=== PATIENT | female | born 1960 | race Asian ===

== ENCOUNTER 2019-06-15 15:46 | Emergency (ER) | payer OTHER ==
--- NOTE | 2019-06-15 15:51 | PDOC ---
Documentation entered by Angela Yoon SCRIBE, acting as scribe for Edith Orozco MD. Edith Orozco MD: This documentation has been prepared by the scaribe, Angela Yoon SCRIBE, under my direction and personally reviewed by me in its entirety. I confirm that the documentation accurately reflects all work, treatment, procedures, and medical decision making performed by me. History of Present Illness - General Chief Complaint: Back Pain Stated Complaint: BACK PAIN Time Seen by Provider: 06/15/19 15:48 History Source: Patient Exam Limitations: No Limitations - History of Present Illness Initial Comments: 06/15/19 16:30 The patient is a 58 year old female with a significant PMHx of hypertension, hypothyroidism, and GERD who presents to the emergency department with intermittent lower lumbar back pain spasms that radiate to her groin and right buttock/upper thigh with a severity of 10/10. Patient states she has always had back pain but it has progressively gotten worse within the past week. Patient states when the spasms start she feels the need to use the bathroom and feels nauseous. 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 No direct trauma or falls. Patient states she visited [facility] on ~2 days ago with similar symptoms and was prescribed celebrex and robaxin. As per patient she took celebrex and robaxin at 11am. She also tried stretching and placing heat packs on her back with some relief of pain. she last saw Dr Youssef about 2 weeks ago for her lower back pain; previously has done epidural injections, none recently. she finished course of medrol dosepak with improvement of sx she has also had chiropractor sessions previously for her back pain management. She denies any trauma or falls. She denies any abdominal pain. She denies any numbness or tingling. She denies recent fevers, chills, headache or dizziness. She denies recent, vomiting, diarrhea or constipation. She denies recent dysuria, frequency, urgency or hematuria. denies pelvic pain Allergies: Shellfish Past surgical history: Appendectomy Social history: Nonsmoker. Denies EtOH use and recreational drug use. Primary Care Physician: Dr. Rodgers Orthopedic Physician : Dr. Youssef 06/15/19 16:37 Past History - Past Medical History Allergies/Adverse Reactions: Allergies Allergy/AdvReac Type Severity Reaction Status Date / Time Shellfish Allergy Severe Hives Verified 10/20/15 16:19 Home Medications: Ambulatory Orders Levothyroxine [Synthroid] 25 mcg PO DAILY 09/27/12 Amlodipine Besylate [Norvasc -] 5 mg PO DAILY 06/16/15 Celecoxib [Celebrex] 200 mg PO BID PRN 06/15/19 Diazepam [Valium] 5 mg PO Q8H #9 tablet MDD 3 06/15/19 Lidocaine 5% Patch [Lidoderm Patch -] 1 patch TP DAILY PRN #7 patch 06/15/19 Methocarbamol [Robaxin-750] 750 mg PO TID PRN 06/15/19 Pantoprazole Sodium [Protonix -] 40 mg PO DAILY 06/15/19 Anemia: No Asthma: No Cancer: No Cardiac Disorders: No CVA: No COPD: No CHF: No Dementia: No Diabetes: No GI Disorders: Yes (GASTRIC REFLUX) Disorders: No HTN: Yes Hypercholesterolemia: No Liver Disease: No Seizures: No Thyroid Disease: Yes - Surgical History Abdominal Surgery: No Appendectomy: Yes Cardiac Surgery: No Cholecystectomy: No Lung Surgery: No Neurologic Surgery: No Orthopedic Surgery: No - Immunization History Immunization Up to Date: Yes - Psycho Social/Smoking Cessation Hx Smoking Status: No Smoking History: Never smoked Number of Cigarettes Smoked Daily: 0 Hx Alcohol Use: No Drug/Substance Use Hx: No Substance Use Type: None Hx Substance Use Treatment: No Review of Systems - Review of Systems Able to Perform ROS?: Yes Comments:: 06/15/19 15:51 Review of Systems Constitutional: no fevers or chills. Resp: no shortness of breath Chest: no chest pain. Abdomen: no abdominal pain Genitorurinary: no urinary retention or incontinence, no dysuria, urgency or frequency. no hematuria MUSCULOSKELETAL: No joint pain and swelling. No muscle pain/arthralgias. Back: + back pain SKIN: no redness or skin changes, no discharge, no rash. No wounds. Hematologic: no easy bruising/bleeding. NEUROLOGIC: No weakness, numbness or tingling. Allergic/Immunologic: no allergies All other systems reviewed and negative, or as documented in HPI. 06/15/19 16:14 *Physical Exam - Physical Exam 06/15/19 15:51 physical exam General: NAD, well appearing HEENT: NCAT, PERRL, EOMI Chest: RRR, no murmur Resp: CTAB, no respiratory distress Abdomen: soft, no tenderness, nondistended Vascular: 2+ DP pulses symmetric and equal. Back: no midline tenderness, no stepoffs, FROM; +right sided paralumbar TTP, with associated tenderness over coccyx, right buttock and lateral /proximal upper thigh. +spasms MSK: notable for soft compartments, Cap refill <2 sec. Proximal and distal strength 5/5, product design specialist strength 5/5 - equal and symmetric. Plantar flexion and dorsiflexion 5/5. FROM. Sensation grossly intact to light touch. No calf tenderness. Neg SLR b/l. 2+ patellar reflexes. Neuro: alert, no focal neurologic deficits Skin: color normal color, warm and well perfused. Cap refill <2 sec. 06/15/19 16:13 06/15/19 16:17 Medical Decision Making - Medical Decision Making 06/15/19 16:15 Vital Signs Temp Pulse Resp BP Pulse Ox 98.5 F 90 16 150/80 95 06/15/19 15:47 06/15/19 15:47 06/15/19 15:47 06/15/19 15:47 06/15/19 15:47 The patient presents with acute onset of back pain after 1 week. Clinically this patient can be ruled out for serious pathology given there is a completely normal neurological exam, no history of IV drug use, and no history of bowel or bladder incontinence, no perianal numbness/tingling, no constipation or urinary retention. DDx back pain: back strain, lumbago, sciatica, radiculopathy, spinal stenosis. Muscle spasm. Lumbar radiculopathy. Clinically doubt based on exam and clinical history: cord compression or cauda equina, with low suspicion and NO red flag sx such as malignancy, weight loss, trauma, fevers, IVDU, lumbar/spinal procedures, bowel and bladder incontinence/ retention, urinary sx, neurologic deficits or changes. No risk factors or findings concerning for epidural abscess, discitis, vertebral osteomyelitis, cord compression, cauda equina, vertebral fracture or bone malignancy, AAA, or pyelonephritis. no imaging indicated no fall/trauma, so doubt bony deformities or fracture. also no midline back tenderness. neuro intact no abdominal or pelvic sx to warrant further imaging. check UA, unremarkable;' no blood or infection 06/15/19 17:12 on reassessment, feels much improved, pain down to 2/10, improved ROM spasms improved., able to ambulate, neuro intact, no focal deficits. Once the patients pain was adequately controlled, the patient was able to ambulate and be discharged in stable condition with anticipatory guidance provided. Can ambulate as tolerated, no heavy lifting, range of motion exercises encouraged. Rx meds, side effects reviewed, prn for analgesia/spasms. Patient instructed to consider further imaging and workup through their primary care physician as an outpatient if symptoms persist. Pt to be discharged in stable condition. Patient and family made aware of clinical impression, treatment recommendations and disposition plan, return precautions discussed (including but not limited to new or persistent/worsening symptoms, pain, fevers, or signs of infection, chest pain, respiratory distress , inability to tolerate oral intake, dehydration, syncope, or neurologic changes ). Follow up with PMD Dr Rodgers and/or ortho specialist as recommended, follow up information provided, take medications as instructed for duration of time. continue with supportive care, ROM exercises/chiropractor, avoid triggers and precipitants. All questions answered to patient's satisfaction and expressed understanding and comfort with this. At the time of discharge, the patient is alert, clinically improved, tolerating po and verbalizes understanding of instructions, satisfied with the care received and felt comfortable with the plan. Patient does not suffer from an acute life-threatening medical condition at this time and is safe for outpatient follow-up. Discharge - Discharge Information Problems reviewed: Yes Clinical Impression/Diagnosis: Back pain Condition: Good Disposition: HOME - Admission No - Additional Discharge Information Prescriptions: Diazepam [Valium] 5 mg PO Q8H #9 tablet MDD 3 Lidocaine 5% Patch [Lidoderm Patch -] 1 patch TP DAILY PRN #7 patch PRN Reason: Pain - Follow up/Referral Referrals: Luis Enrique Rodgers MD [Primary Care Provider] - Sarath Youssef MD [Staff Physician] - - Patient Discharge Instructions Patient Printed Discharge Instructions: DI for Low Back Pain, Acupuncture for Low Back Pain, Exercise May Reduce Risk of Low Back Pain Additional Instructions: Please follow up with your Primary Care Doctor within 48-72 hours - call for an appointment. Ambulate as tolerated and no heavy lifting. take your medications as instructed, home celebrex and/or tylenol as needed for pain control, topical lidoderm patch 12 hours on/12 hours off for myofascial pain, Valium 5mg every 8 hours as needed for muscle spasm- do not drive or make any important decisions while on this medication for it can make you drowsy. If you experience any worsening pain, swelling, numbness, weakness please return to ER you should also follow up with your orthopedist Dr Youssef. HOME CARE INSTRUCTIONS: For many people, back pain returns. Since low back pain is rarely dangerous, it is often a condition that people can learn to manage on their own. Please remain active. It is stressful on the back to sit or brine purifier one place. Do not sit, drive, or brine purifier one place for more than 30 minutes at a time. Take short walks on level surfaces as soon as pain allows. Try to increase the length of time you walk each day. Do not stay in bed. Resting more than 1 or 2 days can delay your recovery. Do not avoid exercise or work. Your body is made to move. It is not dangerous to be active, even though your back may hurt. Your back will likely heal faster if you return to being active before your pain is gone. Only take [id number] or prescription medicines as directed by your caregiver. [id number] medicines to reduce pain and inflammation are often the most helpful. Your caregiver may prescribe muscle relaxant drugs. These medicines help dull your pain so you can more quickly return to your normal activities and healthy exercise. Please avoid driving, operating heavy machinery or making important decisions while on this drug - it can cloud your judgment. Avoid feeling anxious or stressed. Stress increases muscle tension and can worsen back pain. It is important to recognize when you are anxious or stressed and learn ways to manage it. Exercise is a great option. SEEK MEDICAL CARE IF: You have pain that is not relieved with rest or medicine. You have pain that does not improve in 1 week. You have new symptoms. You are generally not feeling well. SEEK IMMEDIATE MEDICAL CARE IF: You have pain that radiates from your back into your legs. You develop new bowel or bladder control problems. You have unusual weakness or numbness in your arms or legs. You develop nausea or vomiting. You develop abdominal pain. You feel faint. - Post Discharge Activity Work/Back to School Note: Back to Work
[2019-06-15 16:13] VITALS: BP 150/80; PULSE 90; TEMP 98.5; BMI 22.8
[2019-06-15] MEDS ORDERED: diazePAM 5 MG TABLET PO ONE (16:16)
[2019-06-15] MEDS ORDERED: KETOROLAC TROMETHAMINE 30 MG/1 ML VIAL IM ONE (16:17)
[2019-06-15] MEDS ORDERED: ACETAMINOPHEN 325 MG TABLET (FP) PO ONE (16:17)
[2019-06-15] MEDS ORDERED: LIDOCAINE 5% TOPICAL PATCH TP ONE (16:17)
[2019-06-15] MEDS ORDERED: KETOROLAC TROMETHAMINE 30 MG/1 ML VIAL ONE (16:21)
[2019-06-15] MEDS ORDERED: ACETAMINOPHEN 325 MG TABLET (FP) ONE (16:21)
[2019-06-15] MEDS ORDERED: diazePAM 5 MG TABLET ONE (16:22)
[2019-06-15] MEDS ORDERED: LIDOCAINE 5% TOPICAL PATCH ONE (16:23)
== END 2019-06-15 17:19 | disposition home or self-care (01) ==
LOC: FER 15:46
PROC: 3E0233Z Introduction of Anti-inflammatory into Muscle, Percutaneous Approach (ICD-10-PCS; principal; 2019-06-15)
DX: M54.9 Dorsalgia, unspecified (principal); M54.5 Low back pain; I10 Essential (primary) hypertension; E03.9 Hypothyroidism, unspecified; K21.9 Gastro-esophageal reflux disease without esophagitis
CPT/HCPCS: 81003; 99282-25

== ENCOUNTER 2020-07-10 19:09 | Emergency (ER) | payer OTHER ==
[2020-07-10 19:18] VITALS: BP 164/94; PULSE 95; TEMP 99.1; BMI 23.8
[2020-07-10] MEDS ORDERED: predniSONE 20 MG TABLET (UD) PO ONE (19:36)
[2020-07-10] MEDS ORDERED: predniSONE 20 MG TABLET (UD) ONE (19:38)
[2020-07-10] MEDS ORDERED: LORATADINE 10 MG TABLET PO ONE (20:23)
[2020-07-10] MEDS ORDERED: LORATADINE 10 MG TABLET ONE (20:24)
== END 2020-07-10 21:15 | disposition home or self-care (01) ==
LOC: FER 19:09
PROC: 3E023GC Introduction of Other Therapeutic Substance into Muscle, Percutaneous Approach (ICD-10-PCS; principal; 2020-07-10)
DX: L50.9 Urticaria, unspecified (principal)
CPT/HCPCS: 99284-25

== ENCOUNTER 2020-07-12 12:28 | Emergency (ER) | payer OTHER ==
[2020-07-12 12:42] VITALS: BP 142/87; PULSE 98; TEMP 98.1; BMI 23.8
[2020-07-12] MEDS ORDERED: FAMOTIDINE 20 MG/50 ML IVPB 20 MG/50 ML MG IVPB ONE ×2 (13:10→13:14)
[2020-07-12] MEDS ORDERED: DEXAMETHASONE SOD PHOSPHATE 10 MG/1 ML VIAL IVPUSH ONE (13:10)
[2020-07-12] MEDS ORDERED: DEXAMETHASONE SOD PHOSPHATE 10 MG/1 ML VIAL ONE (13:14)
== END 2020-07-12 14:40 | disposition home or self-care (01) ==
LOC: FER 12:28
PROC: 3E033GC Introduction of Other Therapeutic Substance into Peripheral Vein, Percutaneous Approach (ICD-10-PCS; principal; 2020-07-12)
PROC: 3E033GC Introduction of Other Therapeutic Substance into Peripheral Vein, Percutaneous Approach (ICD-10-PCS; 2020-07-12)
PROC: 3E033GC Introduction of Other Therapeutic Substance into Peripheral Vein, Percutaneous Approach (ICD-10-PCS; 2020-07-12)
DX: L50.0 Allergic urticaria (principal)
CPT/HCPCS: 99285-25; J1100

== ENCOUNTER 2021-01-23 15:29 | Emergency (ER) | payer OTHER ==
[2021-01-23 15:45] VITALS: BP 125/68; PULSE 74; TEMP 99; BMI 23.8
[2021-01-23] MEDS ORDERED: KETOROLAC TROMETHAMINE 15 MG/ML VIAL IM ONE (16:01)
[2021-01-23] MEDS ORDERED: KETOROLAC TROMETHAMINE 30 MG/1 ML VIAL ONE (17:21)
== END 2021-01-23 20:37 | disposition home or self-care (01) ==
LOC: FER 15:29
PROC: 3E0233Z Introduction of Anti-inflammatory into Muscle, Percutaneous Approach (ICD-10-PCS; principal; 2021-01-23)
DX: M25.562 Pain in left knee (principal)
CPT/HCPCS: 73562-TC-LT-FY; 93971-TC; 99284-25

== ENCOUNTER 2021-07-11 19:19 | Emergency (ER) | payer BC, OTHER ==
[2021-07-11 19:26] VITALS: BP 110/70; BMI 23.8
[2021-07-11 19:38] VITALS: PULSE 72; TEMP 98
== END 2021-07-11 20:20 | disposition home or self-care (01) ==
LOC: FER 19:19
DX: J03.90 Acute tonsillitis, unspecified (principal); J02.9 Acute pharyngitis, unspecified; M79.10 Myalgia, unspecified site
CPT/HCPCS: 87804; 99283-25; C9803; U0003; U0005

== ENCOUNTER 2022-04-04 10:25 | Emergency (ER) | payer BC ==
[2022-04-04 10:36] VITALS: RESP 20; BMI 23.8
[2022-04-04] MEDS ORDERED: ACETAMINOPHEN 1000 MG/100 ML BAG IVPB ONE (10:42)
[2022-04-04] MEDS ORDERED: SODIUM CHLORIDE 1,000 ML IV ONE ×2 (10:42→12:00)
[2022-04-04] MEDS ORDERED: ACETAMINOPHEN INJECTION 100 ML IVPB ONE (10:49)
[2022-04-04 11:06] LABS: HEMATOCRIT 37.1 % (32.4-45.2); HEMOGLOBIN 13.1 G/dL (10.7-15.3); MCH 31.1 pg (25.7-33.7); MCHC 35.3 g/dl (32.0-36.0); MEAN CELL VOLUME 88.1 fl (80-96); MEAN PLT VOLUME 7.6 fl (7.5-11.1); RBC 4.21 10^6/uL (3.60-5.2); RDW 13.5 % (11.6-15.6)
[2022-04-04 11:32] LABS: ALBUMIN 3.5 g/dl (3.4-5.0); BILIRUBIN,TOTAL 0.7 mg/dl (0.2-1); CALCIUM 8.5 mg/dl (8.5-10); CREATININE 0.6 mg/dl (0.55-1.3); TOT PROT 6.4 g/dl (6.4-8.2)
[2022-04-04] MEDS ORDERED: POTASSIUM CHLORIDE TABS 10 MEQ TABLET.ER (FP) PO ONE (12:08)
[2022-04-04] MEDS ORDERED: POTASSIUM CHLORIDE TABS 20 MEQ TABLET.ER (FP) PO ONE ×2 (12:09→12:50)
[2022-04-04 12:18] LABS: PLATELET ESTIMATE ADEQUATE
[2022-04-04 13:27] VITALS: BP 101/59; PULSE 80; TEMP 99.9
== END 2022-04-04 13:20 | disposition home or self-care (01) ==
LOC: FER 10:25
PROC: 3E033NZ Introduction of Analgesics, Hypnotics, Sedatives into Peripheral Vein, Percutaneous Approach (ICD-10-PCS; principal; 2022-04-04)
PROC: 3E0337Z Introduction of Electrolytic and Water Balance Substance into Peripheral Vein, Percutaneous Approach (ICD-10-PCS; 2022-04-04)
PROC: 3E0337Z Introduction of Electrolytic and Water Balance Substance into Peripheral Vein, Percutaneous Approach (ICD-10-PCS; 2022-04-04)
DX: A09 Infectious gastroenteritis and colitis, unspecified (principal); E87.6 Hypokalemia
CPT/HCPCS: 36415; 80053; 85027; 99284-25

== ENCOUNTER 2023-08-15 16:50 | Emergency (ER) | payer BC ==
[2023-08-15] MEDS ORDERED: DEXAMETHASONE SOD PHOSPHATE 10 MG/1 ML VIAL IVPUSH ONE (17:39)
[2023-08-15] MEDS ORDERED: DEXAMETHASONE SOD PHOSPHATE 10 MG/1 ML VIAL ONE (17:44)
[2023-08-15 17:56] VITALS: BP 119/75; PULSE 79; RESP 18; TEMP 99.2; BMI 24.7
[2023-08-15 19:34] LABS: THROAT:GRP A STREP NOT DETECTED (NOTDETECTED)
== END 2023-08-15 18:00 | disposition home or self-care (01) ==
LOC: FER 16:50
PROC: 3E033GC Introduction of Other Therapeutic Substance into Peripheral Vein, Percutaneous Approach (ICD-10-PCS; principal; 2023-08-15)
DX: R05.9 Cough, unspecified (principal); M79.10 Myalgia, unspecified site; B34.9 Viral infection, unspecified; U07.1 COVID-19
CPT/HCPCS: 0241U-QW; 87651; 99284-25; J1100